=== PATIENT | male | born 1975 | race Caucasian/White ===

== ENCOUNTER 2016-08-01 08:15 | Emergency (ER) | payer OTHER ==
--- NOTE | 2016-08-01 09:19 | ED ORDER SUMMARY ---
..... Patient: VIDA JOLLY OrderSheet [facility] VisitID: [id number] [address] [place] [address] 41y, M Registration Date/Time: 08/01/2016 ORDER SHEET Weight: 107.9 kg (stated) Allergies: Pain mediations GENERAL ORDERS: Knee 4V Right Urgent (08:34 08/01/2016 Radha Ramires) (Ack 8:37 LTapper) (9:33 Christine Pascual) MEDICATION ORDERS: IV FLUIDS: ORDER SHEET NOTES: [Electronically signed by Rosalinda Boo R.N. (09:51 08/01/2016)] [Electronically signed by Joel Bravo Dr. (09:58 08/01/2016)] [Electronically locked/signed by Rosalinda Boo R.N. (09:51 08/01/2016)]
--- NOTE | 2016-08-01 09:19 | ED CLINICAL REPORT ---
Clinical Report - Physicians/Mid Levels [facility] [address] [place] [place] [address] 08/01/2016 8:15 [id number] Time Seen: 08:21; initial patient contact. Arrived- By private vehicle. Historian- patient. HISTORY OF PRESENT ILLNESS Chief Complaint: Injury to right knee. The injury happened just prior to arrival. Occurred at home. Fell down 1 stair while walking and landed on a concrete surface; tripped. Patient is experiencing mild pain. Patient denies injury to the head or neck. REVIEW OF SYSTEMS No swelling, weakness or skin laceration. He has no pain on weight bearing. All systems otherwise negative, except as recorded above. PAST HISTORY ( Hyperlipidemia. Atypical Chest Pain. Corneal Abrasion. URI. Lower Extremity Pain. Pharyngitis. Bronchitis. Sinusitis. "collapsed left lung after pneumonia). Pneumonia. Dental Caries. ADDITIONAL SURGERIES: Chest tube. Knee Surgery. Shoulder Surgery.). Medications: None. Allergies: Pain mediations. SOCIAL HISTORY Smoker - current status unknown. History of drug use: marijuana. ADDITIONAL NOTES The nursing notes have been reviewed with agreement regarding the chief complaint, PMH and patient medications and allergies. PHYSICAL EXAM Appearance: Alert. Oriented X3. No acute distress. Head: Head atraumatic. Eyes: Eyes normal inspection. ENT: Pharynx normal. Skin: Skin intact. Skin warm and dry. Normal skin color. Extremities: Right leg: mild tenderness located in the upper leg. Neurovascular intact distally. No erythema, swelling, laceration, abrasion or ecchymosis. No deformity. No limitation of weight bearing. Extremities otherwise negative. Neuro, Vascular and Tendons: Sensation intact. Motor intact. Gait: Normal gait. Neuro: Oriented X 3. LABS, X-RAYS, AND EKG Rt Knee X-ray: No fracture. Normal alignment. No bony lesion, air in the soft tissue or foreign body. Soft tissues normal. Joint spaces normal. Views: AP, lateral and oblique. Technique: good. The X-rays were independently viewed by me and interpreted contemporaneously by me. Prior films were not available for comparison. Interpretation time: 09:19. PROGRESS AND PROCEDURES Disposition: Discharged home in good condition. Condition: good. CLINICAL IMPRESSION Single contusion to the right lower leg. INSTRUCTIONS Apply ice for 20 minutes four times a day. Don't apply ice directly to skin. Your Current Medications: CONTINUE TAKING THE FOLLOWING MEDICATIONS: None*. Prescription Medications: Tramadol 50 mg: take 1 orally every 6 hours as needed for pain. Do not take more than 8 tablets in a 24 hour period. Dispense twenty (20). No refills. Follow-up: Follow up with your doctor in about two days if not better. Screening today revealed the patient's blood pressure to be in the pre-hypertensive range. The patient should follow up with a primary care provider for blood pressure management. (Electronically signed by Joel Bravo Dr. 08/01/2016 9:58)
--- NOTE | 2016-08-01 09:19 | ED NURSING NOTES ---
Clinical Report - Nurses [place] [address] [place] [address] 08/01/2016 8:15 Patient: VIDA JOLLY TRIAGE Triage time 08:25. Acuity: LEVEL 3. Chief Complaint: INJURY TO RIGHT KNEE. Alert. No acute distress. ( Pt. denies LOC.). SEPSIS SCREEN: Sepsis Screen. Negative (no infection suspected/documented). RITA COMA SCORE: Rita Coma Scale: 15- eyes open spontaneously (4); best verbal response- oriented x 4 (5); best motor response- obeys commands (6). --08:29 Rosalinda Boo R.N. 08:25 08/01/16. BP: 131/86. HR: 68. RR: 16. O2 saturation: 98%. Temp: 98.5 F. Pain level now 07/03. --08:29 Rosalinda Boo R.N. Weight: 107.9 kg stated. Height/Length: 71 inches Per Patient. BMI: 33.2. --08:26 Rosalinda Boo R.N. Medications None. --08:28 Rosalinda Boo R.N. Allergies Pain mediations. --08:29 Rosalinda Boo R.N. History Arrived by private vehicle. Historian: patient. Unaccompanied. Primary physician (Rosaura). This occurred today (45 minutes ago). Mechanism of injury: fell while walking and landed on a concrete surface; tripped (from:porch). ( also having left shoulder pain.). 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 PAST MEDICAL HX: Immunizations: up-to-date. SOCIAL HX: Smoker- current status unknown. History of drug use: marijuana. (daily). No alcohol use. ABUSE ASSESSMENT: Abuse assessment: The patient was asked "Do you feel safe in your home?" and "Has anyone hurt you or threatened to hurt you?". No report of abuse. SELF HARM ASSESSMENT: A self harm assessment was performed. The patient answered "no" to the question "Do you have thoughts of harming or killing yourself?" and "Have you recently had thoughts about harming or killing others?". NUTRITIONAL RISK ASSESSMENT: The nutritional risk assessment revealed no deficiencies. FUNCTIONAL ASSESSMENT: Functional assessment: no impairments noted. LEARNING NEEDS ASSESSMENT: The learning needs assessment revealed no barriers. --08:29 Rosalinda Boo R.N. PROBLEMS: Hyperlipidemia. Atypical Chest Pain. Corneal Abrasion. URI. Lower Extremity Pain. Pharyngitis. Bronchitis. Sinusitis. "collapsed left lung after pneumonia). Pneumonia. Dental Caries. --08: Rosalinda Boo R.N. ADDITIONAL SURGERIES: Chest tube. Knee Surgery. Shoulder Surgery. --08:29 Rosalinda Boo R.N. Interventions ID band on patient. Ambulatory. --08: Rosalinda Boo R.N. PHYSICAL ASSESSMENT Ambulatory to room. GENERAL / NEURO / PSYCH: Oriented X 4. Alert. Appears in no acute distress. EXTREMITIES: Right knee: tenderness and swelling. SKIN: Skin intact. Skin is warm and dry. --08:29 Rosalinda Boo R.N. NURSING PROGRESS NOTES Cold pack applied. Two patient identifiers checked. Call light placed in reach. Side rails up x 2. Bed placed in lowest position. Brakes of bed on. Patient ready for evaluation- chart flagged. --08:29 Rosalinda Boo R.N. DISPOSITION / DISCHARGE Departure time: 09:38. Condition at departure: improved. The goals identified in the patient's plan of care were met. No learning barriers present. Discharge instructions provided and reviewed with the patient. Patient verbalized understanding. Written instructions provided in Romanian. ( Tramadol prescription given to pt, discussed in detail discharge instructions, all questions answered.). The patient was discharged by the physician. He was discharged home. He left the Emergency Department ambulatory and via private vehicle. Patient driving. FALL RISK ASSESSMENT: Fall risk assessment completed. No fall risk identified. --09:38 Bernadine Parmar R.N. 09:33 08/01/16. BP: 134/96. HR: 76. RR: 18. O2 saturation: 98%. Temp: 98.5 F. Pain level now: 07/03. Additional comments: RA. --09:38 Bernadine Parmar R.N. Locked/Released at 08/01/2016 9:51 by Rosalinda Boo R.N.
--- NOTE | 2016-08-01 09:19 | ED ORDER SUMMARY ---
..... Patient: VIDA JOLLY OrderSheet [facility] VisitID: [id number] [address] [place] [address] 41y, M Registration Date/Time: 08/01/2016 ORDER SHEET Weight: 107.9 kg (stated) Allergies: Pain mediations GENERAL ORDERS: Knee 4V Right Urgent (08:34 08/01/2016 Radha Ramires) (Ack 8:37 LTapper) (9:33 Christine Pascual) MEDICATION ORDERS: IV FLUIDS: ORDER SHEET NOTES: [Electronically signed by Rosalinda Boo R.N. (09:51 08/01/2016)] [Electronically signed by Joel Bravo Dr. (09:58 08/01/2016)] [Electronically locked/signed by Rosalinda Boo R.N. (09:51 08/01/2016)]
--- NOTE | 2016-08-01 09:19 | ED NURSING NOTES ---
Clinical Report - Nurses [place] [address] [place] [address] 08/01/2016 8:15 Patient: VIDA JOLLY TRIAGE Triage time 08:25. Acuity: LEVEL 3. Chief Complaint: INJURY TO RIGHT KNEE. Alert. No acute distress. ( Pt. denies LOC.). SEPSIS SCREEN: Sepsis Screen. Negative (no infection suspected/documented). RITA COMA SCORE: Rita Coma Scale: 15- eyes open spontaneously (4); best verbal response- oriented x 4 (5); best motor response- obeys commands (6). --08:29 Rosalinda Boo R.N. 08:25 08/01/16. BP: 131/86. HR: 68. RR: 16. O2 saturation: 98%. Temp: 98.5 F. Pain level now 07/03. --08:29 Rosalinda Boo R.N. Weight: 107.9 kg stated. Height/Length: 71 inches Per Patient. BMI: 33.2. --08:26 Rosalinda Boo R.N. Medications None. --08:28 Rosalinda Boo R.N. Allergies Pain mediations. --08:29 Rosalinda Boo R.N. History Arrived by private vehicle. Historian: patient. Unaccompanied. Primary physician (Rosaura). This occurred today (45 minutes ago). Mechanism of injury: fell while walking and landed on a concrete surface; tripped (from:porch). ( also having left shoulder pain.). 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 PAST MEDICAL HX: Immunizations: up-to-date. SOCIAL HX: Smoker- current status unknown. History of drug use: marijuana. (daily). No alcohol use. ABUSE ASSESSMENT: Abuse assessment: The patient was asked "Do you feel safe in your home?" and "Has anyone hurt you or threatened to hurt you?". No report of abuse. SELF HARM ASSESSMENT: A self harm assessment was performed. The patient answered "no" to the question "Do you have thoughts of harming or killing yourself?" and "Have you recently had thoughts about harming or killing others?". NUTRITIONAL RISK ASSESSMENT: The nutritional risk assessment revealed no deficiencies. FUNCTIONAL ASSESSMENT: Functional assessment: no impairments noted. LEARNING NEEDS ASSESSMENT: The learning needs assessment revealed no barriers. --08:29 Rosalinda Boo R.N. PROBLEMS: Hyperlipidemia. Atypical Chest Pain. Corneal Abrasion. URI. Lower Extremity Pain. Pharyngitis. Bronchitis. Sinusitis. "collapsed left lung after pneumonia). Pneumonia. Dental Caries. --08: Rosalinda Boo R.N. ADDITIONAL SURGERIES: Chest tube. Knee Surgery. Shoulder Surgery. --08:29 Rosalinda Boo R.N. Interventions ID band on patient. Ambulatory. --08: Rosalinda Boo R.N. PHYSICAL ASSESSMENT Ambulatory to room. GENERAL / NEURO / PSYCH: Oriented X 4. Alert. Appears in no acute distress. EXTREMITIES: Right knee: tenderness and swelling. SKIN: Skin intact. Skin is warm and dry. --08:29 Rosalinda Boo R.N. NURSING PROGRESS NOTES Cold pack applied. Two patient identifiers checked. Call light placed in reach. Side rails up x 2. Bed placed in lowest position. Brakes of bed on. Patient ready for evaluation- chart flagged. --08:29 Rosalinda Boo R.N. DISPOSITION / DISCHARGE Departure time: 09:38. Condition at departure: improved. The goals identified in the patient's plan of care were met. No learning barriers present. Discharge instructions provided and reviewed with the patient. Patient verbalized understanding. Written instructions provided in Turkmen. ( Tramadol prescription given to pt, discussed in detail discharge instructions, all questions answered.). The patient was discharged by the physician. He was discharged home. He left the Emergency Department ambulatory and via private vehicle. Patient driving. FALL RISK ASSESSMENT: Fall risk assessment completed. No fall risk identified. --09:38 Bernadine Parmar R.N. 09:33 08/01/16. BP: 134/96. HR: 76. RR: 18. O2 saturation: 98%. Temp: 98.5 F. Pain level now: 07/03. Additional comments: RA. --09:38 Bernadine Parmar R.N. Locked/Released at 08/01/2016 9:51 by Rosalinda Boo R.N.
--- NOTE | 2016-08-01 09:19 | ED CLINICAL REPORT ---
Clinical Report - Physicians/Mid Levels [facility] [address] [place] [place] [address] 08/01/2016 8:15 [id number] Time Seen: 08:21; initial patient contact. Arrived- By private vehicle. Historian- patient. HISTORY OF PRESENT ILLNESS Chief Complaint: Injury to right knee. The injury happened just prior to arrival. Occurred at home. Fell down 1 stair while walking and landed on a concrete surface; tripped. Patient is experiencing mild pain. Patient denies injury to the head or neck. REVIEW OF SYSTEMS No swelling, weakness or skin laceration. He has no pain on weight bearing. All systems otherwise negative, except as recorded above. PAST HISTORY ( Hyperlipidemia. Atypical Chest Pain. Corneal Abrasion. URI. Lower Extremity Pain. Pharyngitis. Bronchitis. Sinusitis. "collapsed left lung after pneumonia). Pneumonia. Dental Caries. ADDITIONAL SURGERIES: Chest tube. Knee Surgery. Shoulder Surgery.). Medications: None. Allergies: Pain mediations. SOCIAL HISTORY Smoker - current status unknown. History of drug use: marijuana. ADDITIONAL NOTES The nursing notes have been reviewed with agreement regarding the chief complaint, PMH and patient medications and allergies. PHYSICAL EXAM Appearance: Alert. Oriented X3. No acute distress. Head: Head atraumatic. Eyes: Eyes normal inspection. ENT: Pharynx normal. Skin: Skin intact. Skin warm and dry. Normal skin color. Extremities: Right leg: mild tenderness located in the upper leg. Neurovascular intact distally. No erythema, swelling, laceration, abrasion or ecchymosis. No deformity. No limitation of weight bearing. Extremities otherwise negative. Neuro, Vascular and Tendons: Sensation intact. Motor intact. Gait: Normal gait. Neuro: Oriented X 3. LABS, X-RAYS, AND EKG Rt Knee X-ray: No fracture. Normal alignment. No bony lesion, air in the soft tissue or foreign body. Soft tissues normal. Joint spaces normal. Views: AP, lateral and oblique. Technique: good. The X-rays were independently viewed by me and interpreted contemporaneously by me. Prior films were not available for comparison. Interpretation time: 09:19. PROGRESS AND PROCEDURES Disposition: Discharged home in good condition. Condition: good. CLINICAL IMPRESSION Single contusion to the right lower leg. INSTRUCTIONS Apply ice for 20 minutes four times a day. Don't apply ice directly to skin. Your Current Medications: CONTINUE TAKING THE FOLLOWING MEDICATIONS: None*. Prescription Medications: Tramadol 50 mg: take 1 orally every 6 hours as needed for pain. Do not take more than 8 tablets in a 24 hour period. Dispense twenty (20). No refills. Follow-up: Follow up with your doctor in about two days if not better. Screening today revealed the patient's blood pressure to be in the pre-hypertensive range. The patient should follow up with a primary care provider for blood pressure management. (Electronically signed by Joel Bravo Dr. 08/01/2016 9:58)
--- NOTE | 2016-08-01 09:50 | DIAGNOSTIC IMAGING REPORT ---
PROCEDURE: XR KNEE 4 VIEWS - RIGHT INDICATION: TRAUMA/INJURY TECHNIQUE: Four views. COMPARISON: None. FINDINGS: Bones, joint spaces and soft tissues are normal. IMPRESSION: 1. Normal left knee.
--- NOTE | 2016-08-01 09:58 | ED MAR SUMMARY ---
..... Medication Administration Record [facility] [address] [place], [place] [id number] Patient: VIDA JOLLY Visit ID: [id number] 41y, M Weight: 107.9 kg Height/Length: 71 in BMI: 33.2 ALLERGIES: Pain mediations
--- NOTE | 2016-08-01 09:58 | ED MED RECONCILIATION SUMMARY ---
Patient: VIAD JOLLY Medication Reconciliation Report [facility] VisitID: [id number] [address] [place] [address] 41y, M Registration Date/Time: 08/01/2016 Weight: 107.9 kg Height/Length: 71 in. BMI: 33.2 ALLERGIES: Pain mediations The patient's Home Medications are listed below: NONE. The source(s) of the original Home Medication information: Not obtained. The following Medications were given to the patient in the Emergency Department: None. The following Medications were prescribed to the patient: Tramadol 50 mg: take 1 orally every 6 hours as needed for pain. Do not take more than 8 tablets in a 24 hour period. Dispense twenty (20). No refills. -- Joel Bravo Dr.
--- NOTE | 2016-08-01 09:58 | ED MED RECONCILIATION SUMMARY ---
Patient: VIDA JOLLY Medication Reconciliation Report [facility] VisitID: [id number] [address] [place] [address] 41y, M Registration Date/Time: 08/01/2016 Weight: 107.9 kg Height/Length: 71 in. BMI: 33.2 ALLERGIES: Pain mediations The patient's Home Medications are listed below: NONE. The source(s) of the original Home Medication information: Not obtained. The following Medications were given to the patient in the Emergency Department: None. The following Medications were prescribed to the patient: Tramadol 50 mg: take 1 orally every 6 hours as needed for pain. Do not take more than 8 tablets in a 24 hour period. Dispense twenty (20). No refills. -- Joel Bravo Dr.
--- NOTE | 2016-08-01 09:58 | ED DISCHARGE INSTRUCTIONS ---
Patient: VIDA JOLLY General Instructions [facility] VisitID: [id number] [place] [address] 41y, M Registration Date/Time: 08/01/2016 Single contusion to the right lower leg. INSTRUCTIONS Apply ice for 20 minutes four times a day. Don't apply ice directly to skin. Your Current Medications: CONTINUE TAKING THE FOLLOWING MEDICATIONS: None*. Prescription Medications: Tramadol 50 mg: take 1 orally every 6 hours as needed for pain. Do not take more than 8 tablets in a 24 hour period. Dispense twenty (20). No refills. Follow-up: Follow up with your doctor in about two days if not better. Screening today revealed the patient's blood pressure to be in the pre-hypertensive range. The patient should follow up with a primary care provider for blood pressure management. ADDITIONAL INFORMATION Contusion,Soft Tissue You have a CONTUSION, which is a bruise with swelling and some bleeding under the skin. There are no broken bones. This injury takes a few days to a few weeks to heal. Home Care: 1) Keep the injured part elevated to reduce pain and swelling. This is especially important during the first 48 hours. 2) Make an ice pack (ice cubes in a plastic bag, wrapped in a towel) and apply for 20 minutes every 1-2 hours the first day. Continue this 3-4 times a day until the pain and swelling goes away. 3) You may use acetaminophen (Tylenol) or ibuprofen (Motrin, Advil) to control pain, unless another pain medicine was prescribed. [ NOTE : If you have chronic liver or kidney disease or ever had a stomach ulcer or GI bleeding, talk with your doctor before using these medicines.] Follow Up with your doctor or this facility if you are not improving within the next THREE days. [NOTE: If X-rays were taken, they will be reviewed by a radiologist. You will be notified of any new findings that may affect your care.] Get Prompt Medical Attention if any of the following occur: -- Pain or swelling increases -- Injured arm or leg becomes cold, blue, numb or tingly -- Redness, warmth or drainage from the skin Tramadol Hydrochloride Oral tablet What is this medicine? TRAMADOL (TRA ma dole) is a pain reliever. It is used to treat moderate to severe pain in adults. How should I use this medicine? Take this medicine by mouth with a full glass of water. Follow the directions on the prescription label. If the medicine upsets your stomach, take it with food or milk. Do not take more medicine than you are told to take. Talk to your extension educator regarding the use of this medicine in children. Special care may be needed. What side effects may I notice from receiving this medicine? Side effects that you should report to your doctor or health foster care social worker as soon as possible: allergic reactions like skin rash, itching or hives, swelling of the face, lips, or tongue breathing difficulties, wheezing confusion itching light headedness or fainting spells redness, blistering, peeling or loosening of the skin, including inside the mouth seizures Side effects that usually do not require medical attention (report to your doctor or health foster care social worker if they continue or are bothersome): constipation dizziness drowsiness headache nausea, vomiting What may interact with this medicine? Do not take this medicine with any of the following medications: MAOIs like Carbex, Eldepryl, Marplan, Nardil, and Parnate This medicine may also interact with the following medications: alcohol or medicines that contain alcohol antihistamines benzodiazepines bupropion carbamazepine or oxcarbazepine clozapine cyclobenzaprine digoxin furazolidone linezolid medicines for depression, anxiety, or psychotic disturbances medicines for migraine headache like almotriptan, eletriptan, frovatriptan, naratriptan, rizatriptan, sumatriptan, zolmitriptan medicines for pain like pentazocine, buprenorphine, butorphanol, meperidine, nalbuphine, and propoxyphene medicines for sleep muscle relaxants naltrexone phenobarbital phenothiazines like perphenazine, thioridazine, chlorpromazine, mesoridazine, fluphenazine, prochlorperazine, promazine, and trifluoperazine procarbazine warfarin What if I miss a dose? If you miss a dose, take it as soon as you can. If it is almost time for your next dose, take only that dose. Do not take double or extra doses. Where should I keep my medicine? Keep out of the reach of children. Store at room temperature between 15 and 30 degrees C (59 and 86 degrees F). Keep container tightly closed. Throw away any unused medicine after the expiration date. What should I tell my health care provider before I take this medicine? They need to know if you have any of these conditions: brain tumor depression drug abuse or addiction head injury if you frequently drink alcohol containing drinks kidney disease or trouble passing urine liver disease lung disease, asthma, or breathing problems seizures or epilepsy suicidal thoughts, plans, or attempt; a previous suicide attempt by you or a family member an unusual or allergic reaction to tramadol, codeine, other medicines, foods, dyes, or preservatives or trying to get breast-feeding What should I watch for while using this medicine? Tell your doctor or health foster care social worker if your pain does not go away, if it gets worse, or if you have new or a different type of pain. You may develop tolerance to the medicine. Tolerance means that you will need a higher dose of the medicine for pain relief. Tolerance is normal and is expected if you take this medicine for a long time. Do not suddenly stop taking your medicine because you may develop a severe reaction. Your body becomes used to the medicine. This does NOT mean you are addicted. Addiction is a behavior related to getting and using a drug for a non-medical reason. If you have pain, you have a medical reason to take pain medicine. Your doctor will tell you how much medicine to take. If your doctor wants you to stop the medicine, the dose will be slowly lowered over time to avoid any side effects. You may get drowsy or dizzy. Do not drive, use machinery, or do anything that needs mental alertness until you know how this medicine affects you. Do not stand or sit up quickly, especially if you are an older patient. This reduces the risk of dizzy or fainting spells. Alcohol can increase or decrease the effects of this medicine. Avoid alcoholic drinks. You may have constipation. Try to have a bowel movement at least every 2 to 3 days. If you do not have a bowel movement for 3 days, call your doctor or health foster care social worker. Your mouth may get dry. Chewing sugarless gum or sucking hard candy, and drinking plenty of water may help. Contact your doctor if the problem does not go away or is severe. You have been given the following additional information: Contusion, Soft Tissue Tramadol Hydrochloride Oral tablet (Electronically signed by Joel Bravo Dr. 08/01/2016 9:58)
--- NOTE | 2016-08-01 09:58 | ED DISCHARGE INSTRUCTIONS ---
Patient: VIDA JOLLY General Instructions [facility] VisitID: [id number] [place] [address] 41y, M Registration Date/Time: 08/01/2016 Single contusion to the right lower leg. INSTRUCTIONS Apply ice for 20 minutes four times a day. Don't apply ice directly to skin. Your Current Medications: CONTINUE TAKING THE FOLLOWING MEDICATIONS: None*. Prescription Medications: Tramadol 50 mg: take 1 orally every 6 hours as needed for pain. Do not take more than 8 tablets in a 24 hour period. Dispense twenty (20). No refills. Follow-up: Follow up with your doctor in about two days if not better. Screening today revealed the patient's blood pressure to be in the pre-hypertensive range. The patient should follow up with a primary care provider for blood pressure management. ADDITIONAL INFORMATION Contusion,Soft Tissue You have a CONTUSION, which is a bruise with swelling and some bleeding under the skin. There are no broken bones. This injury takes a few days to a few weeks to heal. Home Care: 1) Keep the injured part elevated to reduce pain and swelling. This is especially important during the first 48 hours. 2) Make an ice pack (ice cubes in a plastic bag, wrapped in a towel) and apply for 20 minutes every 1-2 hours the first day. Continue this 3-4 times a day until the pain and swelling goes away. 3) You may use acetaminophen (Tylenol) or ibuprofen (Motrin, Advil) to control pain, unless another pain medicine was prescribed. [ NOTE : If you have chronic liver or kidney disease or ever had a stomach ulcer or GI bleeding, talk with your doctor before using these medicines.] Follow Up with your doctor or this facility if you are not improving within the next THREE days. [NOTE: If X-rays were taken, they will be reviewed by a radiologist. You will be notified of any new findings that may affect your care.] Get Prompt Medical Attention if any of the following occur: -- Pain or swelling increases -- Injured arm or leg becomes cold, blue, numb or tingly -- Redness, warmth or drainage from the skin Tramadol Hydrochloride Oral tablet What is this medicine? TRAMADOL (TRA ma dole) is a pain reliever. It is used to treat moderate to severe pain in adults. How should I use this medicine? Take this medicine by mouth with a full glass of water. Follow the directions on the prescription label. If the medicine upsets your stomach, take it with food or milk. Do not take more medicine than you are told to take. Talk to your forensic science technician regarding the use of this medicine in children. Special care may be needed. What side effects may I notice from receiving this medicine? Side effects that you should report to your doctor or health critical care cns as soon as possible: allergic reactions like skin rash, itching or hives, swelling of the face, lips, or tongue breathing difficulties, wheezing confusion itching light headedness or fainting spells redness, blistering, peeling or loosening of the skin, including inside the mouth seizures Side effects that usually do not require medical attention (report to your doctor or health critical care cns if they continue or are bothersome): constipation dizziness drowsiness headache nausea, vomiting What may interact with this medicine? Do not take this medicine with any of the following medications: MAOIs like Carbex, Eldepryl, Marplan, Nardil, and Parnate This medicine may also interact with the following medications: alcohol or medicines that contain alcohol antihistamines benzodiazepines bupropion carbamazepine or oxcarbazepine clozapine cyclobenzaprine digoxin furazolidone linezolid medicines for depression, anxiety, or psychotic disturbances medicines for migraine headache like almotriptan, eletriptan, frovatriptan, naratriptan, rizatriptan, sumatriptan, zolmitriptan medicines for pain like pentazocine, buprenorphine, butorphanol, meperidine, nalbuphine, and propoxyphene medicines for sleep muscle relaxants naltrexone phenobarbital phenothiazines like perphenazine, thioridazine, chlorpromazine, mesoridazine, fluphenazine, prochlorperazine, promazine, and trifluoperazine procarbazine warfarin What if I miss a dose? If you miss a dose, take it as soon as you can. If it is almost time for your next dose, take only that dose. Do not take double or extra doses. Where should I keep my medicine? Keep out of the reach of children. Store at room temperature between 15 and 30 degrees C (59 and 86 degrees F). Keep container tightly closed. Throw away any unused medicine after the expiration date. What should I tell my health care provider before I take this medicine? They need to know if you have any of these conditions: brain tumor depression drug abuse or addiction head injury if you frequently drink alcohol containing drinks kidney disease or trouble passing urine liver disease lung disease, asthma, or breathing problems seizures or epilepsy suicidal thoughts, plans, or attempt; a previous suicide attempt by you or a family member an unusual or allergic reaction to tramadol, codeine, other medicines, foods, dyes, or preservatives or trying to get breast-feeding What should I watch for while using this medicine? Tell your doctor or health critical care cns if your pain does not go away, if it gets worse, or if you have new or a different type of pain. You may develop tolerance to the medicine. Tolerance means that you will need a higher dose of the medicine for pain relief. Tolerance is normal and is expected if you take this medicine for a long time. Do not suddenly stop taking your medicine because you may develop a severe reaction. Your body becomes used to the medicine. This does NOT mean you are addicted. Addiction is a behavior related to getting and using a drug for a non-medical reason. If you have pain, you have a medical reason to take pain medicine. Your doctor will tell you how much medicine to take. If your doctor wants you to stop the medicine, the dose will be slowly lowered over time to avoid any side effects. You may get drowsy or dizzy. Do not drive, use machinery, or do anything that needs mental alertness until you know how this medicine affects you. Do not stand or sit up quickly, especially if you are an older patient. This reduces the risk of dizzy or fainting spells. Alcohol can increase or decrease the effects of this medicine. Avoid alcoholic drinks. You may have constipation. Try to have a bowel movement at least every 2 to 3 days. If you do not have a bowel movement for 3 days, call your doctor or health critical care cns. Your mouth may get dry. Chewing sugarless gum or sucking hard candy, and drinking plenty of water may help. Contact your doctor if the problem does not go away or is severe. You have been given the following additional information: Contusion, Soft Tissue Tramadol Hydrochloride Oral tablet (Electronically signed by Joel Bravo Dr. 08/01/2016 9:58)
--- NOTE | 2016-08-01 09:58 | ED MAR SUMMARY ---
..... Medication Administration Record [facility] [address] [place], [place] [id number] Patient: VIDA JOLLY Visit ID: [id number] 41y, M Weight: 107.9 kg Height/Length: 71 in BMI: 33.2 ALLERGIES: Pain mediations
== END 2016-08-01 16:49 | disposition home or self-care (01) ==
LOC: ED SRH 08:15
DX: S80.11XA Contusion of right lower leg, initial encounter (principal); W10.9XXA Fall (on) (from) unspecified stairs and steps, initial encounter; Y93.89 Activity, other specified; Y92.9 Unspecified place or not applicable; Y99.9 Unspecified external cause status

== ENCOUNTER 2016-09-25 15:49 | Outpatient (CLI) | payer OTHER ==
--- NOTE | 2016-09-25 16:35 | DIAGNOSTIC IMAGING REPORT ---
PROCEDURE: CT LOWER EXT W/O CONT-RIGHT INDICATION: RT CARPENTER PAIN TECHNIQUE: Accessed and a frontal and sagittal re-formations. COMPARISON: Right knee x-rays 08/01/2016 FINDINGS: There is no fracture or suspicious osseous lesion. Punctate subcutaneous calcification anterior to the proximal tibia. Lateral femoral condyle bone island. Normal joint spaces. No effusion. Normal musculature. IMPRESSION: 1. No evidence of a fracture or suspicious osseous lesion.
== END 2016-09-25 23:00 ==
LOC: CT SRH 15:49
DX: M79.661 Pain in right lower leg (principal)